=== PATIENT | male | born 1990 | race Caucasian/White ===

== ENCOUNTER 2022-09-25 16:41 | Emergency (ER) | payer OTHER, MEDICAID ==
[~2022-09-25] VITALS: Ht 167.6 cm; Wt 76.2 kg
[2022-09-25 16:48] VITALS: TEMP 98.4
[2022-09-25] MEDS ORDERED: DIATR MEGLU/DIATRIZOATE SODIUM 30 ML BOTTLE (GASTROGRAPHIN) ONE (17:21)
[2022-09-25 20:14] VITALS: BP 139/72; O2SAT 98
== END 2022-09-25 20:15 ==
LOC: ER 17:10
DX: K94.29 Other complications of gastrostomy (principal); Z88.5 Allergy status to narcotic agent; Z91.018 Allergy to other foods
CPT/HCPCS: 99283; 74018; Q9963